=== PATIENT | male | born 1960 | race Caucasian/White ===

== ENCOUNTER 2022-03-09 09:53 | Outpatient (CLI) | payer MEDICARE, BC, SELFPAY ==
--- NOTE | ~2022-03-09 | XR_ITS ---
EXAMINATION: XR chest 2V 03/09/2022 10:16 INDICATION: Aortic stenosis. Dyspnea. PROCEDURE: 2 view chest COMPARISON: 11/23/2016 FINDINGS: The lungs are clear. The cardiomediastinal silhouette is within normal limits. There are no pleural effusions. There is no pneumothorax suspected. IMPRESSION: 1: NO ACUTE CARDIOPULMONARY DISEASE. Reviewed, dictated and finalized at location B.
== END 2022-03-09 09:54 | disposition home or self-care (01) ==
LOC: CHSIMG 09:58
PROVIDERS: PCP Internal Medicine; Visit Provider Internal Medicine
DX: R06.00 Dyspnea, unspecified (principal); Z01.818 Encounter for other preprocedural examination; I35.0 Nonrheumatic aortic (valve) stenosis
CPT/HCPCS: 71046

== ENCOUNTER 2024-01-14 15:07 | Outpatient (CLI) | payer MEDICARE, BC, SELFPAY ==
--- NOTE | ~2024-01-14 | XR_ITS ---
EXAMINATION: XR chest 2V DATE: 01/14/2024 15:43 INDICATION: Fatigue and cough TECHNIQUE: PA and lateral views of the chest were obtained. COMPARISON: Chest radiograph dated 03/09/2022 FINDINGS: Mild linear discoid atelectasis/scarring at the bilateral lung bases. No other airspace opacities, pu lmonary edema, pleural effusion or pneumothorax. The cardiomediastinal silhouette is normal. Mild tho racic spondylosis. IMPRESSION: 1. Mild discoid atelectasis/scarring at the bilateral lung bases. Reviewed, dictated and finalized at location B.
[2024-01-14 15:36] LABS: Basophils Absolute Auto 0.06 K/mm3 (0.00-0.10); Basophils Percent Auto 0.4 % (0.0-1.0); Eosinophils Absolute Auto 0.34 K/mm3 (0.02-0.50); Eosinophils Percent Auto 2.2 % (1.0-6.0); Hematocrit 40.4 % (37.0-46.0); Hemoglobin 14.1 g/dL (12.4-15.3); Immature Granulocyte Percent A 0.7 % (0.0-0.0); Lymphocytes Absolute Auto 1.68 K/mm3 (1.10-4.50); Mean Corpuscular HGB Conc 34.9 g/dL (32-36); Mean Corpuscular Volume 83.1 fL (78.0-102.0); Mean Platelet Volume 8.2 fl (8.7-11.0); Monocytes Absolute Auto 1.17 K/mm3 (0.10-0.90); Monocytes Percent Auto 7.7 % (2.0-11.0); Neutrophils Absolute Auto 11.88 K/mm3 (1.70-7.20); Platelet Count Result 283 K/mm3 (150-420); Red Blood Count 4.86 M/mm3 (4.70-6.10); Red Cell Distribution Width 12.2 % (11.6-14.4); White Blood Count 15.2 K/mm3 (4.8-10.8)
[2024-01-14 15:38] LABS: Appearance Urine Clear (Clear); Bilirubin Urine Negative (Negative); Blood Urine Trace-intact (Negative); Color Urine Yellow (Yellow); Glucose Urine UA Negative (Negative); Ketones Urine Negative (Negative); Leukocyte Esterase Ur Negative (Negative); Nitrate Urine Negative (Negative); Protein Urine Negative (Negative); Specific Grav Ur 1.025 (1.010-1.020)
[2024-01-14 15:45] LABS: Add Urine Microscopic? YES; RBC Urine None seen /hpf (0-2)
[2024-01-14 15:46] LABS: Bacteria Urine None seen /hpf; Mucus Urine Heavy /lpf; Squamous Epithelial Cell Urine Moderate /hpf (Few); WBC Urine None seen /hpf (0-3)
[2024-01-14 16:26] LABS: Alanine Aminotransferase 105 U/L (16-63); Albumin Level 3.3 g/dL (3.4-5.0); Alkaline Phosphatase 261 U/L (46-116); Anion Gap 6 mmol/L (4-12); Aspartate Amino Transferase 48 U/L (15-37); Bilirubin,Total 1.1 mg/dL (0.00-1.00); Blood Urea Nitrogen 11 mg/dL (7-18); Calcium 8.2 mg/dL (8.5-10.1); Carbon Dioxide 33 mmol/L (21-32); Chloride 98 mmol/L (98-108); Cholesterol 121 mg/dL (0-200); Estimated Glomerular Filt Rate > 60; Free T3 2.34 pg/mL (2.18-3.98); Free T4 Free Thyroxine 1.05 ng/dL (0.76-1.46); Glucose 103 mg/dL (70-99); HDL Direct 41 mg/dL (40-60); LDL Cholesterol Calculated 69 mg/dL (<130); Magnesium 2.1 mg/dL (1.8-2.4); NT Pro B Type Natriuretic Pept 58 pg/mL (0-125); Osmolality Calculated 283 mOsm/kg (285-295); Potassium 3.4 mmol/L (3.5-5.1); Sodium 137 mmol/L (136-145); Thyroid Stimulating Hormone 0.84 uIU/mL (0.36-3.74); Total Protein 6.9 g/dL (6.4-8.2); Triglycerides 54 mg/dL (0-150)
[2024-01-14 16:29] LABS: CRP 13.9 mg/dL (0.0-0.9)
[2024-01-14 16:30] LABS: Prostate Specific Antigen < 0.1 ng/mL (< OR = 4.0)
== END 2024-01-14 15:08 | disposition home or self-care (01) ==
PROVIDERS: PCP Internal Medicine; Visit Provider Internal Medicine
DX: R05.9 Cough, unspecified (principal); R53.83 Other fatigue; R42 Dizziness and giddiness; R91.8 Other nonspecific abnormal finding of lung field; E78.5 Hyperlipidemia, unspecified; R06.02 Shortness of breath; N40.0 Benign prostatic hyperplasia without lower urinary tract symptoms
CPT/HCPCS: 36415; 71046; 80053; 80061; 81001; 83735; 83880; 84153; 84439; 84443; 84481; 85025; 86140

== ENCOUNTER 2024-01-16 08:47 | Outpatient (CLI) | payer MEDICARE, BC, SELFPAY ==
--- NOTE | ~2024-01-16 | CT_ITS ---
EXAMINATION: CT chest abdomen pelvis w con DATE: 01/16/2024 09:26 INDICATION: Abnormal liver enzymes and rapidly loss TECHNIQUE: Computed tomography (CT) of the chest, abdomen, and pelvis was performed with 100 mL Omnip aque-350 intravenous contrast. Automated exposure control and iterative reconstruction technique were employed. The dose-length product was 1943.95 mGy-cm. COMPARISON: Chest CT dated 11/29/2016 FINDINGS: CHEST CT: Elevation of the right hemidiaphragm. Lungs are clear with no suspicious pulmonary nodules, pneumonia , pulmonary edema or pleural effusion. Heart size is normal. Atherosclerotic coronary artery calcific ation. Dense aortic valve calcification. Thoracic aorta is normal in caliber with no dissection. No p athologically enlarged thoracic lymphadenopathy. Mild thoracic spondylosis with bridging osteophytes at multiple levels consistent with diffuse idiopathic skeletal hyperostosis (DISH). ABDOMEN/PELVIS CT: 1 cm cyst in the left hepatic lobe. The gallbladder, spleen, pancreas and bilateral adrenal glands ar e normal. No intra or extra hepatic biliary ductal dilation. Bilateral renal cysts measuring 1.2 cm t he upper pole the right kidney and 1.3 cm at the interpolar region of the left kidney. Bowels includi ng the appendix are normal. 1.8 cm stone in the otherwise normal bladder. No free intraperitoneal gas or fluid. Small bilateral fat-containing inguinal hernias, left greater than right. No pathologicall y enlarged abdominal or pelvic lymphadenopathy. 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 Mild lumbar spondylosis. IMPRESSION: 1. No lesion suspicious for malignancy and no acute cardiopulmonary disease or acute intra-abdominal/ pelvic process. Reviewed, dictated and finalized at location B. IMPRESSION: 1. No lesion suspicious for malignancy and no acute cardiopulmonary disease or acute intra-abdominal/pelvic process.
== END 2024-01-16 08:48 | disposition home or self-care (01) ==
LOC: CHSIMG 08:51
PROVIDERS: PCP Internal Medicine; Visit Provider Internal Medicine
DX: R05.9 Cough, unspecified (principal); R63.4 Abnormal weight loss
CPT/HCPCS: 71260; 74177; Q9967